=== PATIENT | female | born 2000 | race Caucasian/White ===

== ENCOUNTER 2018-06-23 23:08 | Emergency (ER) | payer OTHER ==
--- NOTE | 2018-06-23 23:10 | ER Report ---
History and Physical Time Seen By MD: 23:10 HPI/ROS CHIEF COMPLAINT: Fall, left elbow injury HISTORY OF PRESENT ILLNESS: 16-year-old female presents ambulatory to the ER complaining of left elbow pain. She states she fell onto her left elbow. There is some soft tissue swelling noted over the olecranon bursa. The skin is katharine thematous. There is no abrasion or ecchymosis. Patient shows fairly good range of motion. The wrist and shoulder are unremarkable on palpation. Patient notes 10 pain aggravated by palpation REVIEW OF SYSTEMS: Respiratory: No cough, no dyspnea. Cardiovascular: No chest pain, no palpitations. Gastrointestinal: No vomiting, no abdominal pain. Musculoskeletal: No back pain. Allergies: Coded Allergies: Sulfa (Sulfonamide Antibiotics) (Verified Allergy, Unknown, 06/23/18) amoxicillin (Verified Allergy, Unknown, 06/23/18) clavulanic acid (Verified Allergy, Unknown, 06/23/18) strawberry (Verified Allergy, Unknown, 06/23/18) Home Meds Reported Medications Dicyclomine Hcl (DICYCLOMINE HCL) 10 Mg Capsule, 10 MG PO QID, CAPSULE 06/23/18 Promethazine Hcl (PROMETHAZINE HCL) 25 Mg Tablet, 25 MG PO Q8H, TAB 06/23/18 Ondansetron Hcl (ZOFRAN) 4 Mg Tablet, 4 MG PO Q12H, TAB 06/23/18 Norgestimate-Ethinyl Estradiol (ORTHO TRI-CYCLEN) 1 Each Tablet, 1 EACH PO 06/23/18 Omeprazole Magnesium (PRILOSEC OTC) 20 Mg Tablet.dr, 1 TAB PO BID, TAB 06/23/18 Reviewed Nurses Notes: Yes Old Medical Records Reviewed: Yes Constitutional Vital Sign - Last 24 Hours 06/23/18 06/23/18 06/23/18 06/23/18 23:09 23:10 23:30 23:38 Temp 98.1 Pulse 76 82 Resp 17 B/P (MAP) 138/85 (102) 138/85 117/73 (88) Pulse Ox 96 94 O2 Delivery Room Air Physical Exam General Appearance: The patient is alert, has no immediate need for airway protection and no current signs of toxicity. Palpation of the head and neck reveal no tenderness or trauma HEENT: Pupils equal and round no injection. Oropharynx without dental trauma Respiratory: Chest is non tender, lungs are clear to auscultation. No chest wall tenderness Cardiac: regular rate and rhythm Gastrointestinal: Abdomen is soft and non tender, no masses, bowel sounds normal. Musculoskeletal: Neck: Neck is supple and non tender. No tenderness in the midline Extremities have full range of motion and are non tender. Soft tissue swelling and erythema over the olecranon process. There is tenderness in the area. The left lower externally is neurovascularly intact in the hand Skin: No rashes or lesions. DIFFERENTIAL DIAGNOSIS: After history and physical exam differential diagnosis was considered for sprain, strain, fracture, dislocation, contusion, traumatic bursitis Medical Decision Making EKG/Imaging Imaging X-ray: Three-view left elbow was obtained. I viewed the images myself on the PACS system. My interpretation of the images is: No fracture no dislocation or malalignment, no fat pad signs. The radiologist interpretation had no clinically significant variation from this interpretation. ED Course/Re-evaluation ED Course Patient was admitted to an examination room. H&P was done. The differential diagnoses was considered. On clinical examination. Patient has elbow te nderness and swelling. Diagnostic x-rays are unremarkable. Patient's advised to conservative treatment plan of ice and ibuprofen. Patient advised to follow- up with primary care if unimproved in 3-5 days. Decision to Disposition Date: Jun 23, 2018 Decision to Disposition Time: 23:40 Depart Departure Latest Vital Signs Vital Signs Date Time Temp Pulse Resp B/P (MAP) Pulse Ox O2 Delivery O2 Flow Rate FiO2 06/23/18 23:38 82 94 06/23/18 23:30 117/73 (88) 06/23/18 23:10 98.1 17 Room Air Impression: Primary Impression: Left elbow contusion Condition: Improved Disposition: HOME OR SELF-CARE Referrals: RAMILA AMARO MD, FARRUKH MD Patient Instructions: Contusion in Adults (ED) Additional Instructions: Take ibuprofen 200 mg 3 tablets 3 times a day with food Plan ice packs to your elbow for 2 days Follow-up with your primary care if unimproved in 3-5 days Problem Qualifiers Primary Impression: Left elbow contusion Encounter type: initial encounter Qualified Codes: S50.02XA - Contusion of left elbow, initial encounter RADHA FOREMAN DO Jun 23, 2018 23:10
[2018-06-23] MEDS ORDERED: DICY10CA11 PO (23:19)
[2018-06-23] MEDS ORDERED: PROM-110 PO (23:19)
[2018-06-23] MEDS ORDERED: NORG1TAB94 PO (23:19)
[2018-06-23] MEDS ORDERED: ONDA4TAB97 PO (23:19)
[2018-06-23] MEDS ORDERED: OMEP-218 PO (23:19)
[2018-06-23 23:30] VITALS: BP 117/73
--- NOTE | 2018-06-23 23:54 | RADIOLOGY IMAGING REPORT ---
FACILITY: [facility] PATIENT NAME: Daniella Thomas : 2000 MR: [id number] V: [id number] EXAM DATE: [id number] ORDERING PHYSICIAN: RADHA FOREMAN TECHNOLOGIST: Location: [facility] Patient: Daniella Thomas : 2000 Visit/Account:[id number] Date of Sevice: 06/23/2018 INDICATION: Fall, left elbow pain. EXAM DATE: 06/23/2018 11:19 PM COMPARISON: None. FINDINGS: 3 views left elbow. Mineralization is normal. No acute alignment abnormality or fracture. Soft tissue s are unremarkable. IMPRESSION: Normal left elbow. Report Dictated By: Campbell Valentin MD at 06/23/2018 11:47 PM Report E-Signed By: Campbell Valentin MD at 06/23/2018 11:50 PM WSN:[id number]
== END 2018-06-23 23:53 | disposition home or self-care (01) ==
LOC: ER 23:08
DX: S50.02XA Contusion of left elbow, initial encounter (principal)
CPT/HCPCS: 99283